=== PATIENT | male | born 1990 | race Caucasian/White ===

== ENCOUNTER 2018-06-14 15:27 | Emergency (ER) | payer SELFPAY ==
[~2018-06-14 15:27] MED LIST: IBUPROFEN600 M1 PO; LEVSIN0.125 M1 PO; LISINOPRIL2.5 M1 PO; PRILOSEC OTC20 M1 PO; TOUJEO SOL300 UNIT/1 SC; VICODIN 5-3001 EACH PO; ZENPEP DR 40,01 EAC1 PO; ZOFRAN ODT4 M1 SL
[2018-06-14 15:40] VITALS: BP 112/70
--- NOTE | 2018-06-14 15:48 | ED UPPER/LOWER EXTREMITY COMPL ---
History of Present Illness General Chief Complaint: Suture Removal/Wound Recheck Stated Complaint: SUTURE REMOVAL Source: patient, old records Exam Limitations: no limitations Vital Signs & Intake/Output Vital Signs & Intake/Output Vital Signs Date Time Temp Pulse Resp B/P B/P Pulse O2 O2 Flow FiO2 Mean Ox Delivery Rate 06/14 1540 97.0 80 22 112/70 98 Allergies Coded Allergies: NO KNOWN ALLERGIES (UNKNOWN 09/16/17) Reconcile Medications Insulin Glargine,Hum.rec.anlog (Ron Guerragustavo) 300 UNIT/1 ML INSULN.PEN 12 UNITS SC PRN DIABETES (Reported) Lipase/Protease/Amylase (Michelle Ronquillo 40,000 Unit Capsule) [phone] CAPSULE.DR 1 CAP PO TID SUPPLEMENT (Reported) Lisinopril 2.5 MG TABLET 1 TAB PO DAILY HEART (Reported) Triage Note: PER PT SUTURES PLACED TO L INDEX FINGER 8 DAYS AGO HERE FOR REMOVAL. DENIES FEVER CO TENDERNESS TO AREA Triage Nurses Notes Reviewed? yes Onset: Abrupt Duration: better Timing: recent history Severity: moderate Severity Numbers: 5 HPI: Patient is a 27-year-old male who presents emergency room for request of wound recheck and suture removal, Old records indicate the patient actually struck his left index finger while trying #5 LEFT INDEX (Reid Mathew) Past History Travel History Traveled to [place] past 21 day No Medical History Any Pertinent Medical History? see below for history Neurological: NONE EENT: NONE Cardiovascular: NONE Respiratory: NONE Gastrointestinal: PANCREATITIS Hepatic: NONE Renal: NONE Musculoskeletal: NONE Psychiatric: NONE Endocrine: diabetes Blood Disorders: NONE Cancer(s): NONE CARE NURSE RN/Reproductive: NONE Surgical History Surgical History: non-contributory Psychosocial History Who do you live with Father Services at Home None What is your primary language Greenlandic Tobacco Use: Current Daily Use Daily Tobacco Use Amount/Type: => 5 Cigarettes daily Family History Hx Contributory? No (Reid Mathew) Review of Systems Review of Systems Constitutional: Reports: no symptoms. EENTM: Reports: no symptoms. Respiratory: Reports: no symptoms. Cardiovascular: Reports: no symptoms. Gastrointestinal/Abdominal: Reports: no symptoms. Genitourinary: Reports: no symptoms. Musculoskeletal: Reports: see HPI. Skin: Reports: see HPI. Neurological/Psychological: Reports: no symptoms. Hematologic/Endocrine: Reports: no symptoms. Immunological: Reports: no symptoms. All Other Systems: Reviewed and Negative (Reid Mathew) Physical Exam Physical Exam General Appearance: no apparent distress, alert, comfortable Head: atraumatic Eyes: Bilateral: normal appearance. Ears, Nose, Throat: hearing grossly normal Neck: normal inspection Cardiovascular/Respiratory: no respiratory distress Peripheral Pulses: 2+ radial (L) Neurologic/Tendon: normal sensation, normal motor functions, normal tendon functions, responds to pain, no evidence tendon injury, no pulse deficit Skin: intact, normal color, warm/dry Diagram Hands Front 1) 1.5 cm well-healing laceration margins were revised, #6 intact sutures no surrounding erythema warmth or tenderness dermatomes intact (Reid Mathew) Progress Differential Diagnosis: arterial insufficiency, compartment syndrome, contusion, dislocation, DVT, fracture, gout, septic arthritis, sprain, tendon injury Plan of Care: Laceration site looks well healing. No signs of infection #6 sutures were removed without competitions bacitracin and bandage was applied dermatomes intact. Full active range of motion. (Reid Mathew) Departure Departure Disposition: HOME OR SELF CARE Condition: Stable Clinical Impression Primary Impression: Visit for wound check Secondary Impressions: Visit for suture removal Referrals: Carlos Oliver MD (PCP/Family) Additional Instructions: As discussed begin to apply bacitracin to the area once a day tomorrow THEN LEAVE the area open to improve healing if you note signs infection or developing new concerning symptom return to emergency room. Departure Forms: Customer Survey General Discharge Information (Reid Mathew) PA/SAUSAGE STRINGER Co-Sign Statement Statement: ED Attending supervision documentation- [] I saw and evaluated the patient. I have also reviewed all the pertinent lab results and diagnostic results. I agree with the findings and the plan of care as documented in the PA's/SAUSAGE STRINGER's documentation. [X] I have reviewed the ED Record and agree with the PA's/SAUSAGE STRINGER's documentation. [] Additions or exceptions (if any) to the PAs/SAUSAGE STRINGER's note and plan are summarized below: [] ([place] iGlmore DO)
== END 2018-06-14 15:57 ==
LOC: ERH 15:27
DX: Z48.02 Encounter for removal of sutures (principal)